=== PATIENT | female | born 1935 | race Caucasian/White ===

== ENCOUNTER → 2017-02-26 16:51 | Outpatient (CLI) | payer MEDICARE ==
[2015-12-13 13:04] VITALS: BMI 29.1
[~2017-02-26 16:51] MED LIST: ACCUPRIL20 MG PO; ALENDRONATE SOD70 MG PO; ATIVAN0.5 MG PO; BACLOFEN10 MG PO; BAYER CHEWABLE81 MG PO; CELEXA40 MG PO; CINNAMON500 MG PO; COREG6.25 MG PO; ELIQUIS2.5 MG PO; HUMALOG 30100 UNITS/ SC; HYDROCODON-ACET15 ML PO; HYDROCODONE-APA1 TAB PO; KRILL OIL 1,001 EAC1 PO; LEVEMIR100 U/M1 SC; LOPRESSOR25 MG PO; MAG-OX 400 MG400 MG PO; MILK THISTLE140 MG PO; MUCUS RELIEF400 MG PO; MULTIPLE VITAMI1 TA1 PO; MYRBETRIQ50 MG PO; NEURONTIN600 MG PO; NORCO 7.5/325 T1 TA1 PO; PERCOCET 10/3251 TA1 PO; PRILOSEC20 MG PO; PROBIOTIC1 EAC1 PO; STOOL SOFTENER240 MG PO; TANZEUM30 MG/0.5 SC; TURMERIC PO; ULORIC40 MG PO; VESICARE10 MG PO; VITAMIN B COMPL1 TAB PO; VITAMIN D31000 UNI2 PO
[2017-02-26 17:24] LABS: BASOPHILS 0.2 % (0-2); EOSINOPHILS 3.6 % (0-7); HEMATOCRIT 39.5 % (36.0-48.0); HEMOGLOBIN 12.8 g/dL (12-16); IMMATURE GRANULOCYTES 0.4 % (0-5); LYMPHOCYTES 29.9 % (15-50); MCH 32.2 pg (26.0-34.0); MCHC 32.4 g/dL (31.0-37.0); MCV 99.5 fL (80.0-100.0); MONOCYTES 8.5 % (2-11); NEUTROPHILS 57.4 % (40-80); PLATELET COUNT 187 10x3/uL (130-400); RBC 3.97 10x6/uL (4.00-5.40); RDW 13.9 % (11.5-14.5); WBC 5.6 10x3/uL (4.8-10.8)
[2017-02-26 18:33] LABS: ERYTHROCYTE SEDIMENTATION RATE 14 mm/hr (0-30)
== END | disposition home or self-care (01) ==
LOC: D.LAB 16:51
PROVIDERS: Orthopaedic Surgery
DX: M25.562 Pain in left knee (principal)

== ENCOUNTER → 2017-05-02 08:28 | Outpatient (CLI) | payer MEDICARE, OTHER ==
[2015-12-13 13:04] VITALS: BMI 29.1
== END | disposition home or self-care (01) ==
LOC: D.NM 08:15
DX: M25.562 Pain in left knee (principal)

== ENCOUNTER → 2017-05-09 19:22 | Outpatient (CLI) | payer MEDICARE, OTHER ==
[2015-12-13 13:04] VITALS: BMI 29.1
== END | disposition home or self-care (01) ==
LOC: D.LABREF 19:22
DX: M25.562 Pain in left knee (principal); Z11.8 Encounter for screening for other infectious and parasitic diseases

== ENCOUNTER 2017-05-23 10:00 | Inpatient (IN) | payer MEDICARE, OTHER ==
[~2017-05-23] VITALS: Ht 165.1 cm; Wt 81.8 kg
[~2017-05-23 10:00] MED LIST changes: +CALCIUM 600+D T1 TA1 PO; +OXYBUTYNIN CHLOR5 MG PO; +STOOL SOFTENER100 M1 PO; -STOOL SOFTENER240 MG PO; +TYLENOL W/CODEI1 TAB PO
[2017-05-23] MEDS ORDERED: MIRALAX527 GM PO (11:39)
[2017-05-23] MEDS ORDERED: CARAFATE1 G/10 ML PO (11:40)
[2017-05-23] MEDS ORDERED: MUCINEX600 MG PO (11:40)
[2017-05-23 12:41] LABS: BASOPHILS 0.3 % (0-2); EOSINOPHILS 3.8 % (0-7); HEMATOCRIT 40.7 % (36.0-48.0); HEMOGLOBIN 13.4 g/dL (12-16); IMMATURE GRANULOCYTES 0.2 % (0-5); LYMPHOCYTES 21.5 % (15-50); MCH 33.1 pg (26.0-34.0); MCHC 32.9 g/dL (31.0-37.0); MCV 100.5 fL (80.0-100.0); MONOCYTES 7.4 % (2-11); NEUTROPHILS 66.8 % (40-80); PLATELET COUNT 180 10x3/uL (130-400); RBC 4.05 10x6/uL (4.00-5.40); RDW 13.3 % (11.5-14.5); WBC 6.7 10x3/uL (4.8-10.8)
[2017-05-23 12:47] LABS: CALC OSMOLALITY 280 mosm/kg (275-300); CALCIUM 8.1 mg/dL (8.5-10.1); CARBON DIOXIDE 31.8 mmol/L (21.0-32.0); CHLORIDE - SERUM 103 mmol/L (98-107); CREATININE - SERUM 0.7 mg/dL (0.6-1.3); GLUCOSE 96 mg/dL (74-106); POTASSIUM - SERUM 4.2 mmol/L (3.5-5.1); SODIUM 140 mmol/L (136-145); UREA NITROGEN 19 mg/dL (7-18); eGFR NON AFRICAN AMERICAN 85 mL/min (90-120)
[2017-05-23 12:49] LABS: APTT 26.6 SECONDS (22.8-39.4); PROTIME 13.1 SECONDS (11.6-15.0)
[2017-05-23 12:50] LABS: APPEARANCE CLEAR (CLEAR); BILIRUBIN NEGATIVE (NEGATIVE); COLOR YELLOW (YELLOW); GLUCOSE NEGATIVE (NEGATIVE); KETONE NEGATIVE (NEGATIVE); LEUKOCYTE ESTERASE NEGATIVE (NEGATIVE); NITRITE NEGATIVE (NEGATIVE); PROTEIN NEGATIVE (NEGATIVE); UROBILINOGEN NORMAL (NORMAL)
[2017-05-28] VITALS (10 sets, daily range): BP systolic 124–159; BP diastolic 58–86; Ht 165.1 cm; Wt 81.8 kg
[2017-05-28] MEDS ORDERED: OXYBUTYNIN CHLOR5 MG PO (08:30)
[2017-05-28] MEDS ORDERED: COREG12.5 MG PO (08:31)
--- NOTE | 2017-05-28 12:25 | NUR ---
PATIENT RECEIVED TO FLOOR FROM PACU VIA BED. VITAL SIGNS STABLE. PATIENT A/O X4. DENIES PAIN. DRESSING TO LEFT KNEE CLEAN, DRY AND INTACT. KNEE IMMOBILIZER AND ICE PACK IN PLACED. SCD TO LEFT LEG. HEELS BRIDGED. ORIENTED TO ROOM. INCENTIVE SPIROMETER AND TEACHING PROVIDED. STATES UNDERSATNDING. SIDE RAILS UP X3. BED IN LOW POSITION. CALL LIGHT IN REACH. BED ALARM ON.
--- NOTE | 2017-05-28 14:20 | NUR ---
PATIENT ALERT IN BED. RESPIRATIONS EVEN AND UNLABORED. RESPOSITIONED FOR COMFORT. SIDE RAILS UP X2. BED IN LOW POSITION. CALL LIGHT IN REACH.
--- NOTE | 2017-05-28 16:02 | NUR ---
ALERT IN BED WATCHING TV. NO SIGNS OF DISTRESS NOTED. SCHEDULED MEDICATION ADMINISTERED. DENIES NEEDS. SIDE RAILS UP X2. BED IN LOW POSITION. CALL LIGHT IN REACH.
--- NOTE | 2017-05-28 18:00 | NUR ---
ALERT IN BED WITH FAMILY PRESENT. NO SIGNS OF DISTRESS NOTED. SIDE RAILS UP X2. BED IN LOW POSITION. CALL LIGHT IN REACH.
[2017-05-29] VITALS: BP 162/80
[2017-05-29 04:00] VITALS: BP 131/65
[2017-05-29 06:26] LABS: HEMATOCRIT 33.3 % (36.0-48.0); HEMOGLOBIN 11.1 g/dL (12-16); MCHC 33.3 g/dL (31.0-37.0); MCV 99.1 fL (80.0-100.0); MEAN PLATELET VOLUME 9.3 fL (7.4-10.4); RBC 3.36 10x6/uL (4.00-5.40); WBC 8.8 10x3/uL (4.8-10.8)
--- NOTE | 2017-05-29 07:10 | NUR ---
PATIENT RECEIVED ALERT IN MID PRASAD POSITION. RESPIRATIONS EVEN AND UNLABORED. DENIES NEEDS. SIDE RAILS UP X2. BED IN LOW POSITION. CALL LIGHT IN REACH.
--- NOTE | 2017-05-29 08:56 | NUR ---
Patient Name: JAMESON SANFORD Admission Status: Elective Accout number: [id number] Admission Date: 05-28-2017 : 1934 Admission Diagnosis: Attending: MAGDY Current LOS: 1 Anticipated DC Date: Planned Disposition: Home Primary Insurance: MEDICARE A & B Discharge Planning Comments: CM met with patient to assess discharge planning needs. Patient lives home alone where she plans to return there. She states that her brother Susan Lock will be the one to drive her home. Patient would like to do OP PT @ [facility]. CM will set that up. Patient has a walker x2, cane, shower chair, elevated toilet seat. She has 2 steps with a rail to enter into her home. In the past she has had HH and used [facility] and was happy with them, if she needs HH she would like to use them again. CM will continue to follow and assess as needed on discharge planning/needs. PCP: [facility] Susan Hurtado - [phone] or [phone] Molding Line Assistant: Inez Finley * Is the patient Alert and Oriented? Yes 0 * How many steps to enter\exit or inside your home? 2 0 * PCP [facility] 0 * [facility] 0 * Preadmission Environment Home Alone 0 * ADLs Independent 0 * Equipment Cane Elevated [place] Seat Rolling Walker Shower Chair Walker 0 * List name and contact numbers for known caregivers / representatives who currently or will assist patient after discharge: SUSAN HURTADO (BROTHER) [phone] * Community resources currently utilized None 0 * Please name any agencies selected above. HAS USED [facility] IN PAST 0 * Additional services required to return to the preadmission environment? Yes 0 * Can the patient safely return to the preadmission environment? Yes 0 * Has this patient been hospitalized within the prior 30 days at any hospital? No 0 Grand Total: 0
[2017-05-29 09:23] VITALS: BP 110/72
--- NOTE | 2017-05-29 11:45 | NUR ---
SITTING UP IN CHAIR ALERT. NO SIGNS OF DISTRESS NOTED. DENIES PAIN AND OTHER NEEDS. SCHEDULED MEDICATION ADMINISTERED. CALL LIGHT IN REACH.
[2017-05-29 12:59] VITALS: BP 101/55
--- NOTE | 2017-05-29 16:13 | NUR ---
PATIENT SITTING UP ON SIDE OF BED ALERT. NO SIGNS OF DISTRESS NOTED. SCHEDULED MEDICATION ADMINISTERED. BED IN LOW POSITION. CALL LIGHT IN REACH.
--- NOTE | 2017-05-29 16:45 | NUR ---
DRESSING TO LEFT KNEE SATURATED WITH BLOOD. DRESSING REMOVED. DAVI INTACT. NO REDNESS OR INFLAMMATION NOTED. NEW AQUACEL AG PLACED. COVERED WITH 4X4 AND ABD PAD THEN WRAPPED WITH MAME WRAP. KNEE IMMOBILIZER IN PLACE. POSITIONED FOR COMFORT. WELL TOLERATED. SCDS ON BILATERALLY. SIDE RAILS UP X2. BED IN LOW POSITION. CALL LIGHT IN REACH.
[2017-05-29 16:58] VITALS: BP 127/65
[2017-05-29 20:00] VITALS: BP 147/74
--- NOTE | 2017-05-29 23:23 | NUR ---
[employer] CLEANED UP PATIENT AND CHANGED LINENS
[2017-05-30] VITALS: BP 144/74
[2017-05-30 05:35] LABS: HEMATOCRIT 36.4 % (36.0-48.0); MEAN PLATELET VOLUME 10.4 fL (7.4-10.4); RBC 3.64 10x6/uL (4.00-5.40); RDW 13.1 % (11.5-14.5); WBC 8.1 10x3/uL (4.8-10.8)
--- NOTE | 2017-05-30 08:04 | NUR ---
AWAKE AND ALERT AT THIS TIME. PLEXI PULSE TO LEFT LEG AND SCD TO RIGHT LEG. KNEE IMMOBILIZER TO LEFT LEG REMAINS IN PLACE. BED ALARM ON AND CALL LIGHT IN REACH. WILL CONTINUE WITH PLAN OF CARE.
[2017-05-30 09:52] VITALS: BP 155/77
--- NOTE | 2017-05-30 09:57 | NUR ---
SCHEDULED MEDICATIONS ADMINISTERED AT THIS TIME. UP IN THE CHAIR PER PHYSICAL THERAPY. PT DENIES PAIN AT THIS TIME. MIRALAX PROVIDED IN WATER FOR CONSTIPATION. CALL LIGHT IN REACH, WILL CONTINUE WITH PLAN OF CARE.
--- NOTE | 2017-05-30 11:47 | NUR ---
ASSISTED PT TO BEDSIDE COMMODE WHERE SHE HAD A BOWEL MOVEMENT WITHOUT ANY ISSUES. SCHEDULED MEDICATIONS ADMINISTERED WELL PRN PERCOCET FOR PAIN 6/10 INCISIONALLY. DENIES FURTHER NEEDS, ASSISTED PT BACK TO CHAIR. CALL LIGHT IN REACH, WILL CONTINUE WITH PLAN OF CARE.
[2017-05-30 13:07] VITALS: BP 150/76
[2017-05-30 16:41] VITALS: BP 148/72
[2017-05-30 19:00] VITALS: BP 153/74
[2017-05-31] VITALS: BP 112/89; BP 145/83
--- NOTE | 2017-05-31 00:14 | NUR ---
REC'D LYING IN BED. ALERT AND ORIENTED X4. DENIED PAIN AT THIS TIME. DENIED FURTHER NEEDS AT THIS TIME. INSTRUCTED TO CALL IF NEEDED ANYTHING. VERBALIZED UNDERSTANDING. WILL ADMIN AM/PM MEDS PRESCRIBED. BED LOW, LOCKED, CALL LIGHT IN REACH, ALARM ON.
--- NOTE | 2017-05-31 02:00 | NUR ---
PT IN BED WITH NO DISTRESS. RESPIRATIONS EVEN AND UNLABORED. SIDE RAILS X 2. BED LOW. CALL LIGHT IN REACH.
[2017-05-31 04:00] VITALS: BP 145/87
--- NOTE | 2017-05-31 07:43 | NUR ---
AWKE AND ALERT. ORIENTED X3. C/O SPASMS TO LEFT LEG THIS AM. CPM IN PLACE. PLACED WARM HEAT TO AREA. WILL MONITOR. LUNGS ARE CLEAR BILATERALLY, NO COUGH NOTED. REPORTS USING IS INSTRUCTED. SKIN IS INTACT WITHOUT REDNESS EXCEPT INCISION TO LEFT KNEE WHICH HAS A DRY INTACT DRESSING IN PLACE. NO IV AT THIS TIME. DENIES NEEDS.
[2017-05-31 08:00] VITALS: BP 104/60
--- NOTE | 2017-05-31 08:00 | NUR ---
AWAKE AND ALERT. ORIENTED X3. NO C/O THIS AM. LUNGS ARE CLEAR BILATERALLY, NO COUGH NOTED. SKIN IS INTACT WITHOUT REDNESS EXCEPT INCISION TO LEFT KNEE WHICH HAS A DRY INTACT DRESSING IN PLACE WELL A HINGED IMMOBILIZER. UP TO BSC WITH ONE PERSON MIN ASSIST. VOIDED CLEAR YELLOW URINE WITHOUT DIFFICULTY. SKIN CARE PER SELF. IV TO RIGHT FOREARM IS PATENT WITHOUT REDNESS AT INSERTION SITE. DENIES NEEDS. SCD'S AND PLEXI PULSE IN PLACE.
--- NOTE | 2017-05-31 09:27 | NUR ---
UP TO BSC WITH ONE PERSON ASSIST. HAD LOOSE WATERY STOOL. SKIN CARE PER STAFF.
--- NOTE | 2017-05-31 10:55 | NUR ---
REHAB PRESCREENING Rehab referral received and chart reviewed. Ms. Valdes does not have a rehab appropriate diagnosis and does not meet admission criteria to support the need for medical management of a physician 3 out of 5 days per week. Thank you for this referral! Isaura Greenwood, [facility] Rehab [employer] Worker
--- NOTE | 2017-05-31 14:27 | NUR ---
PATIENT TO BE DISCHARGED TO [facility] TODAY [facility]
[2017-05-31] MEDS ORDERED: PERCOCET 10/3251 TA1 PO (15:08)
[2017-05-31] MEDS ORDERED: ELIQUIS2.5 MG PO (15:08)
--- NOTE | 2017-05-31 15:20 | NUR ---
REPORT CALLED TO LILIA REYNA LPN AT [facility]. ALL QUESTIONS ANSWERED. SL TO RIGHT WRIST D/C WITH CATHETER INTACT.
--- NOTE | 2017-05-31 16:10 | NUR ---
DISCHARGED TO [facility] VIA THEIR TRANSPORT.
--- NOTE | 2017-06-01 21:23 | OP ---
PATIENT NAME: JAMESON SANFORD MEDICAL RECORD: [id number] :34 LOCATION:D[id number] ADMISSION DATE:05/28/17 SURGEON: SUSAN DOMINGO MD DATE OF OPERATION: 05/28/2017 PREOPERATIVE DIAGNOSIS: Painful left total knee. 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 PROCEDURES: 1. Revision total knee patellar component only. 2. ORIF of patellar nonunion. SURGEON: Susan Domingo MD. ANESTHESIA: General. INTRAOPERATIVE COMPLICATIONS: None. SUMMARY OF PATHOLOGIC FINDINGS: While removing the patella that was obviously grossly loose, there was a fracture underneath the patella with fibrous interposition indicating long-term patellar fracture, thus explaining the bone scan was only positive for the patella itself on the left knee. IMPLANTS USED: Two 40-mm cannulated 4.0 compression screws and 31 patellar component from [employer]. OPERATIVE SUMMARY IN DETAIL: After obtaining the appropriate preoperative orthopedic surgery consents as well as anesthetic consultation, evaluation and clearance, the patient was brought to the operating room and placed on the operating table in supine position. After general laryngeal mask airway was administered, tourniquet was placed about the proximal aspect of left lower extremity. Left lower extremity was then prepped and draped in a routine sterile fashion. The leg was elevated and exsanguinated, tourniquet inflated to 350 mmHg. Previous midline incision taken down for paramedian arthrotomy. Patella was everted and observed to be loose. It was removed. Careful inspection showed a fracture under the superior one-third, inferior two-thirds junction transverse. All cement was removed. Two 40-mm cannulated compression screws were placed across the fracture fragment. Then, a 31-mm patellar component was then re-placed with new drill holes. All excess cement was removed. The patella was allowed to harden and the paramedian arthrotomy was closed with 2-0 Ethibond followed by #1 Vicryl, 2-0 Vicryl and skin javier. Sterile dressings were applied. The patient was awakened, taken to recovery room in stable condition. All final needle and sponge counts were correct. TRANSINT:[id number] Voice Confirmation ID: [id number] DOCUMENT ID: [id number] OPERATIVE REPORT [id number] JAMESON SANFORD SUSAN DOMINGO MD at 2123 CC: [id number] DICTATION DATE: 05/28/17 1152 SIDE SAWYER: 05/28/17 1748 DIS IN 05/31/17 [place] [id number] [place] [address]
== END 2017-05-31 16:10 | DRG 464 ==
LOC: D.SDCHOLD 10:00 → D.MS 05-28 05:15 → D.SDCHOLD 05-28 09:45 → D.MS 05-28 12:25 → D.SDCHOLD 05-28 14:45 → D.MS 05-31 16:10
PROVIDERS: ADMIT Orthopaedic Surgery
PROC: 0SUD09C Supplement Left Knee Joint with Liner, Patellar Surface, Open Approach (ICD-10-PCS; 2017-05-28)
PROC: 0QS804Z Reposition Right Femoral Shaft with Internal Fixation Device, Open Approach (ICD-10-PCS; 2017-05-28)
PROC: 0SPD0JC Removal of Synthetic Substitute from Left Knee Joint, Patellar Surface, Open Approach (ICD-10-PCS; principal; 2017-05-28 09:45)
DX: T84.033A Mechanical loosening of internal left knee prosthetic joint, initial encounter (principal); S82.002A Unspecified fracture of left patella, initial encounter for closed fracture; X58.XXXA Exposure to other specified factors, initial encounter; M19.90 Unspecified osteoarthritis, unspecified site; I10 Essential (primary) hypertension; F41.9 Anxiety disorder, unspecified

== ENCOUNTER 2018-01-02 05:50 | Day surgery (SDC) | payer MEDICARE, OTHER ==
[~2018-01-02] VITALS: Ht 165.1 cm; Wt 83.9 kg
--- NOTE | ~2018-01-02 | OP ---
PATIENT NAME: JAMESON SANFORD MEDICAL RECORD: [id number] :34 LOCATION:D.[facility] ADMISSION DATE: SURGEON: EMILE BOWER MD DATE OF OPERATION: 01/02/2018 SURGEON: Emile Bower MD ANESTHESIA: MAC by Chad Garza CRNA PREOPERATIVE DIAGNOSIS: Urge urinary incontinence. PROCEDURES: Cystoscopy and intravesical Botox injection 100 units. FINDINGS: Single ureteral orifices bilaterally. Diffuse bladder inflammation. No bladder tumors. BLOOD LOSS: None. CLINICAL HISTORY: This is an 82-year-old female with a longstanding history of urge urinary incontinence, which has not responded to oral medications. Dr. Santana at [facility] had given her InterStim, which is a bladder pacemaker, but this also did not work. She comes now for intravesical Botox injection. SHE IS ALLERGIC TO AMPICILLIN AND ASPIRIN. She was given Levaquin IV on-call to the OR. DESCRIPTION OF PROCEDURE: The patient was given IV sedation. She was placed in the dorsal lithotomy position and prepped and draped. Cystoscopy was performed using a 21-Thai scope. Findings are as outlined above. She may have some degree of interstitial cystitis. At 10 different locations 1 cc of Botox solution was injected. We avoided injecting the ureteral orifices and the trigone area. Each cc of the Botox solution contains 10 units of Botox. A total of 100 units was given into the bladder. At the end of the procedure, the bladder was emptied through the scope and then, the scope was removed. I will see the patient in followup in 2 weeks' time. TRANSINT:[id number] Voice Confirmation ID: [id number] DOCUMENT ID: [id number] EMILE BOWER MD at 1226 CC: [id number] DICTATION DATE: 01/02/18912 AUTOMATIC FANCY MACHINE OPERATOR: 01/02/18 1104 [facility] 01/02/18 [place] [id number] [place] [id number]
[~2018-01-02 05:50] MED LIST changes: +CARAFATE1 G/10 ML PO; +COREG12.5 MG PO; +MIRALAX527 GM PO; +MUCINEX600 MG PO
[2018-01-02] MEDS ORDERED: TYLENOL W/CODEI1 TAB (07:16)
[2018-01-02] MEDS ORDERED: MYRBETRIQ50 MG PO (07:17)
[2018-01-02 07:41] VITALS: BP 138/68; Ht 165.1 cm; Wt 83.9 kg
[2018-01-02 07:44] LABS: BASOPHILS 0.2 % (0-2); EOSINOPHILS 2.3 % (0-7); HEMATOCRIT 36.8 % (36.0-48.0); HEMOGLOBIN 11.8 g/dL (12-16); LYMPHOCYTES 24.9 % (15-50); MCH 33.1 pg (26.0-34.0); MCHC 32.1 g/dL (31.0-37.0); MCV 103.1 fL (80.0-100.0); MEAN PLATELET VOLUME 10.2 fL (7.4-10.4); MONOCYTES 10.6 % (2-11); PLATELET COUNT 173 10x3/uL (130-400); RBC 3.57 10x6/uL (4.00-5.40); RDW 13.7 % (11.5-14.5); WBC 5.3 10x3/uL (4.8-10.8)
[2018-01-02 08:14] LABS: ANION GAP 10.9 mmol/L (8-16); CALCIUM 8.4 mg/dL (8.5-10.1); CARBON DIOXIDE 30.1 mmol/L (21.0-32.0); CREATININE - SERUM 0.8 mg/dL (0.6-1.3)
== END 2018-01-02 09:55 | disposition home or self-care (01) ==
LOC: D.OPS 05:50 → D.PAN 08:00 → D.OPS 08:00 → D.PAN 08:45 → D.OPS 09:55
PROVIDERS: Anesthesiology
DX: N39.41 Urge incontinence (principal); I10 Essential (primary) hypertension; K21.9 Gastro-esophageal reflux disease without esophagitis; Z01.812 Encounter for preprocedural laboratory examination

== ENCOUNTER → 2019-02-03 10:07 | Outpatient (CLI) | payer MEDICARE, OTHER ==
[~2019-02-03 10:07] MED LIST changes: +TYLENOL W/CODEI1 TAB
--- NOTE | 2019-02-11 08:49 | EC ---
PATIENT:JAMESON SANFORD DATE OF SERVICE: 02/03/19 SEX: F MEDICAL RECORD: [id number] DATE OF : 34 LOCATION:D[facility] AGE OF PATIENT: 83 ADMISSION DATE: 02/03/19 REFERRING PHYSICIAN: INTERPRETING PHYSICIAN: SARY MURPHY MD ECHOCARDIOGRAM REPORT ECHO CHARGES 4 ECHO COMPLETE Date: 02/03/19 CLINICAL DIAGNOSIS: HX OF AORTIC VALVE DISORDER/ CARDIAC CLEARENCE ECHOCARDIOGRAPHIC MEASUREMENTS (adult normal given) AC root (d.<3.7cm) 3.5 cm LV Septum d (<1.2 cm> 1.4 cm Valve Excursion 1.5 cm LV Septum (systole) 1.5 cm Left Atria (s.<4.0cm> 5.2 cm LVPW d(<1.2cm) 1.7 cm RV (d.<2.3cm) 3.1 cm LVPW (sytole) 2.0 cm LV diastole(<5.6CM) 6.5 cm MV E-F(>70mm/sec) cm LV systole 5.2 cm LVOT Diameter 2.0 cm MV exc.(>10mm) 1.9 cm Est.ejection fraction (50-75%) % DOPPLER: LVIT cm/sec A 108 cm/sec E 80.0 cm/sec LA cm/sec RVSP 44 mmHg LVOT 113 cm/sec AOP1/2T 495 m/s Asc. Ao 174 cm/sec RVOT 93 cm/sec RA cm/sec PA 118 cm/sec AV Gradient Peak 12.06mmHg AV Mean 6.47 mmHg AV Area 2.2 cm MV Gradient Peak 8.54 mmHg MV Mean 2.30 mmHg MV Area cm COMMENTS: Bleacher Pulp: Robi GREWAL Leak Detector: 3 Dr. Castillo TAPE# PACS Pericardial Effusion N DATE OF SERVICE: 02/03/2019 Adequate 2-D echo, color-flow and spectral Doppler, and M-mode. LVH is present. LV internal dimensions are normal. Mild anterior apical hypokinesis of LV function. Ejection fraction is mildly reduced at 45% to 50%. Aortic valve sclerosis. There is no evidence of stenosis by Doppler interrogation. Left atrium is dilated at 5.2 cm. Mitral valve shows no prolapse. Mild plus MR. Right-sided chambers are grossly normal. Mild TR. ECHOCARDIOGRAM REPORT [id number] JAMESON SANFORD Sue TRANSINT:[id number] Voice Confirmation ID: [id number] DOCUMENT ID: [id number] SARY MURPHY MD at 0849 CC: [id number] DICTATION DATE: 02/06/191511 GROUP LEADER WAFER POLISHING: 02/06/191956 DEP CLI 02/03/19 [place] [id number] [place] [id number]
--- NOTE | 2019-02-12 10:38 | ST ---
PATIENT:JAMESON SANFORD MEDICAL RECORD: [id number] SEX: F LOCATION:[facility] ORDER #: ADMISSION DATE: 02/03/19 AGE OF PATIENT: 83 REFERRING PHYSICIAN: INTERPRETING PHYSICIAN: LORENZO BIGGS MD DATE OF SERVICE: 02/03/2019 PROCEDURE: Nuclear stress test. INDICATION: Congestive heart failure, shortness of breath. She was exercised on standard Lexiscan protocol with 32 mCi of sestamibi injected at peak stress, 10 mCi used previously for rest images. FINDINGS: Gated SPECT reveals a dilated cardiomyopathy, ejection fraction at 33%. SPECT Imaging: Cardiolite was used as myocardial perfusion agent. There is homogeneous uptake throughout all segments at rest and stress with no evidence of inducible ischemia or previous infarction. OVERALL IMPRESSION: Nonischemic cardiomyopathy, ejection fraction 33% with no evidence of ischemia or coronary artery disease. TRANSINT:[id number] Voice Confirmation ID: [id number] DOCUMENT ID: [id number] LORENZO IBGGS MD at 1038 CC: [id number] DICTATION DATE: 02/04/19 1033 PERSONNEL RECORDS CLERK: 02/04/19 1104 [facility] CLI 02/03/19 [place] [id number] [place] [id number]
== END | disposition home or self-care (01) ==
LOC: D.HCCARDIO 10:07
PROVIDERS: ATTEND Internal Medicine Interventional Cardiology
DX: I50.9 Heart failure, unspecified (principal)

== ENCOUNTER 2019-03-26 12:14 | Emergency (ER) | payer MEDICARE, OTHER ==
[~2019-03-26] VITALS: Ht 165.1 cm; Wt 81.4 kg
[2019-03-26 12:23] VITALS: Ht 165.1 cm; Wt 81.4 kg
[2019-03-26 12:48] LABS: BASOPHILS 0.2 % (0-2); EOSINOPHILS 3.3 % (0-7); HEMATOCRIT 36.7 % (36.0-48.0); LYMPHOCYTES 22.5 % (15-50); MCH 32.2 pg (26.0-34.0); MCHC 32.7 g/dL (31.0-37.0); MCV 98.4 fL (80.0-100.0); MEAN PLATELET VOLUME 9.8 fL (7.4-10.4); PLATELET COUNT 148 10x3/uL (130-400); RBC 3.73 10x6/uL (4.00-5.40); RDW 14.2 % (11.5-14.5); WBC 4.8 10x3/uL (4.8-10.8)
[2019-03-26 13:05] LABS: INR 1.12 (0.85-1.17); PROTIME 13.8 SECONDS (11.6-15.0)
[2019-03-26 13:10] LABS: ALBUMIN 3.2 g/dL (3.4-5.0); ALKALINE PHOSPHATASE 51 U/L (46-116); ALT (SGPT) 25 U/L (10-68); BILIRUBIN - TOTAL 0.63 mg/dL (0.2-1.3); CALC OSMOLALITY 288 mosm/kg (275-300); CALCIUM 8.4 mg/dL (8.5-10.1); CARBON DIOXIDE 27.5 mmol/L (21.0-32.0); CHLORIDE - SERUM 108 mmol/L (98-107); CREATININE - SERUM 0.7 mg/dL (0.6-1.3); GLUCOSE 127 mg/dL (74-106); POTASSIUM - SERUM 3.9 mmol/L (3.5-5.1); PROTEIN - SERUM 6.5 g/dL (6.4-8.2); SODIUM 143 mmol/L (136-145); UREA NITROGEN 19 mg/dL (7-18); eGFR NON AFRICAN AMERICAN 84 mL/min (90-120)
[2019-03-26 13:12] LABS: CKMB 1.4 U/L (0.0-3.6); CREATINE KINASE 88 UL (21-215); PRO BNP 1379 pg/mL (0-450); TROPONIN-I 0.029 ng/mL (0.000-0.060)
[2019-03-26 17:59] VITALS: BP 168/87
[2019-03-27] MEDS ORDERED: FUROSEMIDE20 MG PO (06:43)
== END 2019-03-26 17:55 | disposition home or self-care (01) ==
LOC: D.ER 12:14
PROVIDERS: Family Medicine
DX: R06.00 Dyspnea, unspecified (principal)

== ENCOUNTER 2019-03-27 05:35 | Day surgery (SDC) | payer MEDICARE, OTHER ==
[2019-03-25 10:47] LABS: BASOPHILS 0.4 % (0-2); EOSINOPHILS 3.1 % (0-7); HEMATOCRIT 38.5 % (36.0-48.0); HEMOGLOBIN 12.6 g/dL (12-16); IMMATURE GRANULOCYTES 0.2 % (0-5); LYMPHOCYTES 23.4 % (15-50); MCH 32.2 pg (26.0-34.0); MCHC 32.7 g/dL (31.0-37.0); MCV 98.5 fL (80.0-100.0); MEAN PLATELET VOLUME 9.8 fL (7.4-10.4); MONOCYTES 11.1 % (2-11); NEUTROPHILS 61.8 % (40-80); PLATELET COUNT 153 10x3/uL (130-400); RBC 3.91 10x6/uL (4.00-5.40); RDW 14.3 % (11.5-14.5); WBC 4.8 10x3/uL (4.8-10.8)
[2019-03-25 10:55] LABS: ANION GAP 10.3 mmol/L (8-16); CALCIUM 8.6 mg/dL (8.5-10.1); CARBON DIOXIDE 30.6 mmol/L (21.0-32.0); CREATININE - SERUM 0.8 mg/dL (0.6-1.3); POTASSIUM - SERUM 3.9 mmol/L (3.5-5.1)
[2019-03-25 11:03] LABS: APTT 26.6 SECONDS (22.8-39.4); INR 1.08 (0.85-1.17); PROTIME 13.5 SECONDS (11.6-15.0)
[~2019-03-27] VITALS: Ht 165.1 cm; Wt 78.9 kg
[2019-03-27] MEDS ORDERED: FUROSEMIDE20 MG PO (06:43)
[2019-03-27 06:44] VITALS: BP 135/71; Ht 165.1 cm; Wt 78.9 kg
--- NOTE | 2019-03-27 09:45 | NUR ---
REC'D FROM RR. NO FAMILY AT BEDSIDE. INCONTINENT IN THE RR. FL TRAY BROUGHT TO PATIENT.NO C/O VOICED.
--- NOTE | 2019-03-27 10:00 | NUR ---
CALLED PATIENT'S DAUGHTER AND INFORMED OF POTENTIAL DISCHARGE TIME. VERBALIZED UNDERSTANDING.
--- NOTE | 2019-03-27 10:45 | NUR ---
TOLERATED FL DIET. INFORMED PATIENT AM TRYING TO GET IN TOUCH WITH DR BEAL TO SEE IF HE WANTS HER TO FU IN HIS CLINIC OR TO JUST FOLLOW UP WITH DR BOWER. VERBALIZED UNDERSTANDING.
--- NOTE | 2019-03-27 11:00 | NUR ---
IV DC'D WITH CATHETER INTACT. FAMILY AT BEDSIDER.
--- NOTE | 2019-03-27 11:25 | NUR ---
WRITTEN AND VERBAL DC INSTRUCTIONS GIVEN TO PT ALONG WITH FU APPOINTMENTS. VERBALIZED UNDERSTANDING.
--- NOTE | 2019-03-27 11:30 | NUR ---
DC'D HOME WITH FAMILY VIA PRIVATE VEHICLE. STABLE AT TIME OF DC.
--- NOTE | 2019-03-27 12:00 | OP ---
PATIENT NAME: JAMESON SANFORD MEDICAL RECORD: [id number] :34 LOCATION:[facility] ADMISSION DATE: SURGEON: EMILE BOWER MD DATE OF OPERATION: 03/27/2019 SURGEON: Emile Bower MD ANESTHESIA: TIVA by Lillian Barker CRNA. DIAGNOSES: Interstitial cystitis, urge urinary incontinence. PROCEDURES: Cystoscopy, hydrodistention of the bladder, intravesical Botox injection 100 units, intravesical Rimso instillation. FINDINGS: Inflamed, trabeculated bladder without bladder tumors. BLOOD LOSS: None. CLINICAL HISTORY: This is an 83-year-old female, who has severe urge urinary incontinence, which has not responded to oral medications. Last year, she was started on intravesical Botox injections and it has worked quite well. The last injection of Botox is now worn off and she wishes to have another treatment of Botox. Also, at that time I did her cystoscopy last year, I noticed that she had a very inflamed bladder. Some of her symptoms may be from interstitial cystitis and therefore I will also treat her for interstitial cystitis. DESCRIPTION OF PROCEDURE: The patient was given the appropriate IV antibiotics. She was placed into the lithotomy position and prepped and draped. A 21-Welsh cystoscope was introduced with a 30-degree lens. The bladder was heavily trabeculated. No bladder tumors were seen. The bladder was then hydrodistended to at least 600 mL. While we were hydrodistending, I started injecting Botox at 10 different locations. At each location, 1 mL of Botox solution was injected. Each milliliter of Botox solution contains 10 units of Botox dissolved in it. Once the injections were done, then the bladder was emptied through the cystoscope sheath. During the Botox injection, it should be noted that we avoided the ureteral orifices and the trigone. Finally, we inserted a red rubber catheter. Into the lumen of the red rubber catheter, we instilled the 50 mL of Rimso solution. The catheter was then removed, leaving the solution in the bladder. She will hold this for at least 15 minutes and then void it out. Dr. Butler will be proceeding with a hemorrhoid ligation or banding at the same time. TRANSINT:[id number] Voice Confirmation ID: [id number] DOCUMENT ID: [id number] EMILE BOWER MD at 1200 CC: [id number] DICTATION DATE: 03/27/19 0908 ROTOFORMER BACKTENDER: 03/27/19 1151 REG [facility] [address] [place] [id number]
== END 2019-03-27 11:30 | disposition home or self-care (01) ==
LOC: D.OPS 05:35 → D.PAN 07:30 → D.OPS 07:45 → D.PAN 09:35 → D.OPS 09:35 → D.PAN 10:30 → D.OPS 10:30
PROVIDERS: Anesthesiology; ATTEND Urology
DX: N30.10 Interstitial cystitis (chronic) without hematuria (principal); K64.8 Other hemorrhoids